=== PATIENT | male | born 1980 | race Caucasian/White ===

== ENCOUNTER → 2017-02-02 | Outpatient (CLI) | payer BC, OTHER ==
--- NOTE | 2017-02-06 09:40 | SLEEPCENT ---
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 For testing, the patient was fit with a [employer] full face mask of medium size. 6 cm of water pressure were applied to the circuit, and the lights were extinguished. 6 hours and 11 minutes of data were reviewed. There were 350 minutes of sleep identified. Sleep latency was short at 4.5 minutes. Rapid eye movement (REM) sleep was normal at 79 minutes. Sleep architecture improved with optimal pressure therapy. There were 3-4 REM periods appreciated. Overall sleep efficiency 95%. The patient's electrocardiogram (EKG) showed a sinus rhythm with an average heart rate of 58 beats per minute. Electroencephalogram (EEG) showed reasonably normal waveforms for awake and sleep. Respiratory events were fully palliated with continuous positive airway pressure (CPAP) at a pressure of +11. The remaining measures of sleep physiology were reasonably normal. IMPRESSION: Obstructive sleep apnea syndrome (G47.33). RECOMMENDATION: Nightly use of pressure therapy 11 cm of water.
== END ==
LOC: M SLEEP 06:51
PROVIDERS: ATTEND Nurse Practitioner Adult Health
DX: G47.33 Obstructive sleep apnea (adult) (pediatric) (principal)

== ENCOUNTER 2019-02-12 10:36 | Emergency (ER) | payer OTHER ==
[~2019-02-12] VITALS: Ht 182.9 cm; Wt 104.5 kg
--- NOTE | 2019-02-12 12:10 | REP ---
RIGHT KNEE SERIES: Five views of the right knee are performed. There is no acute fracture or dislocation. Joint spaces appear unremarkable. There is a moderate joint effusion. IMPRESSION: Moderate effusion. Electronically Signed by Chadwick Sheppard MD 02/13/2019 10:53 A
[2019-02-12] MEDS ORDERED: PRED20TA PO (12:23)
[2019-02-12 12:37] VITALS: BP 143/91
== END 2019-02-12 12:40 | disposition home or self-care (01) ==
LOC: M ED 10:36
DX: M25.461 Effusion, right knee (principal); M70.51 Other bursitis of knee, right knee

== ENCOUNTER → 2020-09-27 | Outpatient (REF) | payer OTHER ==
[~2020-09-27] MED LIST: PRED20TA PO
== END ==
LOC: M LAB REF 16:33
PROVIDERS: ATTEND Physician Assistant Medical
DX: Z20.828 Contact with and (suspected) exposure to other viral communicable diseases (principal)